=== PATIENT | female | born 1985 | race Caucasian/White ===

== ENCOUNTER 2016-10-14 05:22 | Inpatient (IN) | payer BC ==
[2016-10-14] MEDS ORDERED: Sodium Chloride 0.9% 2.5 ML Syringe FLUSH PRN (05:33)
[2016-10-14] MEDS ORDERED: Sodium Chloride 0.9% 10 ML Syringe FLUSH PRN (05:33)
[2016-10-14] MEDS ORDERED: Citric Acid/Sodium Citrate Solution 30 ML Cup PO SCH (05:45)
[2016-10-14] MEDS ORDERED: ceFAZolin 2 GM in Premix Bag 1 BAG IV ONE (06:00)
[2016-10-14] MEDS: Lactated Ringers 1,000 ML IV SCH ×2 (07:17→07:49)
--- NOTE | 2016-10-14 07:22 | PCM.PREANE ---
Preanesthetic Assessment - Procedure Proposed Procedure: Second - Anesthesia/Transfusion/Family Hx Anesthesia History: Prior Anesthesia Without Reaction ( 2002) Family History of Anesthesia Reaction: No Transfusion History: No Prior Transfusion(s) Intubation History: Unknown - Review of Systems General: No Symptoms Pulmonary: No Symptoms Cardiovascular: No Symptoms Gastrointestinal: No symptoms, Other (some Reflux with ) Neurological: No Symptoms Other: Reports: None - Physical Assessment Height: 5 ft 5 in Weight: 186 lb ASA Class: 2 Mental Status: Alert & Oriented x3 Airway Class: Mallampati = 1 Dentition: Reports: Normal Dentition Thyro-Mental Finger Breadths: 3 Mouth Opening Finger Breadths: 3 ROM/Head Extension: Full Lungs: Clear to auscultation, Normal respiratory effort Cardiovascular: Regular Rate, Regular Rhythm, No Murmurs Other: Back palpated for spinal: OK - Lab Values: Laboratory Last Values WBC 9.14 K/uL (4.0-11.0) 10/14/16 05:54 RBC 3.84 M/uL (4.30-5.90) L 10/14/16 05:54 Hgb 12.7 g/dL (12.0-16.0) 10/14/16 05:54 Hct 37.3 % (36.0-46.0) 10/14/16 05:54 MCV 97.1 fL (80.0-98.0) 10/14/16 05:54 MCH 33.1 pg (27.0-32.0) H 10/14/16 05:54 MCHC 34.0 g/dL (31.0-37.0) 10/14/16 05:54 RDW Std Deviation 46.5 fl (28.0-62.0) 10/14/16 05:54 RDW Coeff of Amari 13 % (11.0-15.0) 10/14/16 05:54 Plt Count 234 K/uL (150-400) 10/14/16 05:54 MPV 10.40 fL (7.40-12.00) 10/14/16 05:54 Nucleated RBC % 0.0 /100WBC 10/14/16 05:54 Nucleated RBCs # 0 K/uL 10/14/16 05:54 Blood Type O NEGATIVE 10/14/16 05:54 Antibody Screen NEGATIVE 10/14/16 05:54 - Allergies Allergies/Adverse Reactions: Allergies Allergy/AdvReac Type Severity Reaction Status Date / Time No Known Allergies Allergy Verified 11/17/15 14:23 - Blood Blood Available: Yes Product(s) Available: PRBC (T and S) - Anesthesia Plan Free Text/Narrative:: present for interview/exam. He will be present in delivery. Pre-Op Medication Ordered: Antacids - Acknowledgements Anesthesia Type Planned: Spinal Pt an Appropriate Candidate for the Planned Anesthesia: Yes Alternatives and Risks of Anesthesia Discussed w Pt/Guardian: Yes Pt/Guardian Understands and Agrees with Anesthesia Plan: Yes PreAnesthesia Questionnaire Genitourinary History: Reports: None LPN RN HOSPICE History: Reports: Endometriosis, Psychiatric History: Reports: Anxiety, Depression, Panic attack - Infectious Disease History Infectious Disease History: Reports: Chicken pox, Influenza, Shingles - Past Surgical History Head Surgeries/Procedures: Reports: None Female Surgical History: Reports: section Other Female Surgeries/Procedures: hx laparoscopy x2 for endometriosis - SUBSTANCE USE Smoking Status *Q: Never Smoker Days Per Week of Alcohol Use: 3 Number of Drinks Per Day: 2 Total Drinks Per Week: 6 Recreational Drug Use History: No - HOME MEDS Home Medications: Home Meds Doxylamine Succinate [Unisom Sleep Aid] 1 tab PO BEDTIME PRN 10/09/16 [History] Vit W-Ca,Fe,FA(<1 mg) [ Vitamins] 1 tab PO DAILY 10/09/16 [ History] - CURRENT (IN HOUSE) MEDS Current Meds: Current Medications Citric Acid/Sodium Citrate (Bicitra Solution) 30 ml PO .ONCE [facility] Last Admin: 10/14/16 07:09 Dose: 30 ml Lactated Ringer's (Ringers, Lactated) 1,000 mls @ 500 mls/hr IV .BOLUS OUSMANE Stop: 10/14/16 12:00 Last Admin: 10/14/16 07:17 Dose: 500 mls/hr Sodium Chloride (Saline Flush) 10 ml FLUSH ASDIRECTED PRN PRN Reason: Keep Vein Open Sodium Chloride (Saline Flush) 2.5 ml FLUSH ASDIRECTED PRN PRN Reason: Keep Vein Open Discontinued Medications Cefazolin Sodium/Dextrose 2 gm (/ Premix) 50 mls @ 100 mls/hr IV ONETIME ONE Stop: 10/14/16 06:29
[2016-10-14] MEDS ORDERED: Ondansetron 4 MG/2 ML SDV ONE (07:26)
[2016-10-14] MEDS ORDERED: Morphine PF 10 MG/10 ML SDV ONE (07:26)
[2016-10-14] MEDS ORDERED: Oxytocin 10 Units/1 ML SDV ONE (07:26)
[2016-10-14] MEDS ORDERED: ceFAZolin 1 GM Vial ONE (07:28)
[2016-10-14] MEDS ORDERED: Sodium Chloride 0.9% 20 ML ONE (07:28)
[2016-10-14] MEDS ORDERED: Octyl 2-Cyanoacrylate 1 Tube ONE (07:40)
[2016-10-14] MEDS ORDERED: ePHEDrine 50 MG/ML SDV ONE (08:02)
[2016-10-14] MEDS ORDERED: Phenylephrine/Normal Saline 100 MCG/ML 10 ML Syringe ONE (08:04)
--- NOTE | 2016-10-14 08:46 | PCM.OPNOTE ---
- General Post-Op/Procedure Note Date of Surgery/Procedure: 10/14/16 Operative Procedure(s): repeat low transverse Findings: liveborn male 02/21 weigth 4180 grams, normal pelvis Pre Op Diagnosis: 39 weeks prior Post-Op Diagnosis: Same Anesthesia Technique: Spinal Primary Surgeon: Lisy Rubio Anesthesia Provider: Yousuf Jolly Ward Nurse: Leander Marley Pathology: none Output, Urine Amount: 1,200 EBL in mLs: 500 Complications: None Known Condition: Good
[2016-10-14] MEDS ORDERED: Lanolin 100% Cream 7 GM Tube TOP PRN (08:47)
[2016-10-14] MEDS ORDERED: Methylergonovine 0.2 MG/1 ML Amp IM PRN (08:47)
[2016-10-14] MEDS ORDERED: Ondansetron 4 MG/2 ML SDV IV PRN (08:47)
[2016-10-14] MEDS ORDERED: Bisacodyl 10 MG Supp RECTAL PRN (08:47)
[2016-10-14] MEDS ORDERED: Lactated Ringers 1,000 ML IV SCH (09:00)
[2016-10-14] MEDS: Ketorolac 30 MG/ML SDV IVPUSH SCH ×3 (09:06→21:14)
--- NOTE | 2016-10-14 09:35 | OR ---
SURGEON: Lisy Rubio M.D. DATE OF PROCEDURE: 10/14/2016 PREOPERATIVE DIAGNOSIS: A 39-week intrauterine , prior delivery, desires repeat. POSTOPERATIVE DIAGNOSES: 1. A 39-week intrauterine , prior delivery, desires repeat. 2. Polyhydramnios. PROCEDURE: Repeat low transverse section. ANESTHESIA: Spinal. ESTIMATED BLOOD LOSS: Less than 500 mL. FLUIDS: 1200 mL crystalloid. FINDINGS: Live-born male, score 9 and 9, weighing 4180 g. Normal-appearing uterus, tubes, and ovaries. COMPLICATIONS: None known. DISPOSITION: Stable to recovery. BRIEF HISTORY: This is a 31-year-old female. She is G2, P1-0-0-1. She presents for repeat delivery. She has been counseled regarding option of vaginal trial of labor and risks and benefits of such were reviewed and she declines. She desires to proceed with a repeat low transverse section with risks discussed including bleeding, infection, injury to bowel, bladder, blood vessels, ureters, other organs, risk of thromboembolic event, and risk of anesthesia. Understanding all these risks, she does desire to proceed. DESCRIPTION OF PROCEDURE: With the patient in left tilt position, under adequate spinal analgesia, the abdomen was prepped with chlorhexidine and draped in the usual fashion for abdominal surgery. SCDs were in place. Velez catheter had been placed and she received 2 g of Ancef IV. After documentation of adequate analgesia, the prior cicatrix was excised using a scalpel, and the incision was carried through the subcutaneous tissue to the fascia which was scored transversely in the midline. The fascia was elevated from the underlying rectus muscle and using sharp and blunt dissection. The rectus muscles were bluntly in the midline. A finger was used to enter the peritoneal cavity and this incision was extended bluntly. The visceral peritoneum over the lower uterine segment was incised and an adequate bladder flap was developed. A transverse curvilinear incision was made over the lower uterine segment. A finger was used to enter the amniotic cavity. Clear fluid was noted. The incision was extended by blunt dissection in a cephalad caudad direction resulting in a low transverse incision over the lower uterine segment. The head was delivered via the uterine cavity. The infant was bulb suctioned by nose and mouth. The remainder of the 's body was delivered without any difficulty. The cord was clamped x2 and cut. The infant was handed to the nurse in attendance at delivery. The is a liveborn male, score 9 and 9, weighing 4180 g. Cord blood was collected for cord ABGs as well as routine cord blood sampling. The placenta was removed by manual extraction. The uterus was cleaned with a dry laparotomy tape. The cervix was opened with a ring forceps. The uterine incision was closed with a running lock suture of 0 Polysorb followed by an imbricating layer of 0 Polysorb. Two additional [id number] sutures were placed for complete hemostasis. After confirmation of complete hemostasis, was performed the pericolic gutters. Posterior cul-de-sac were cleaned with a wet laparotomy tape. Tubes and ovaries were inspected and were normal. The uterine incision was again inspected. It remained hemostatic. Therefore, the Abiodun O retractor was removed. The uterine incision was inspected one last time and remained completely hemostatic. Therefore, the rectus muscle and peritoneum were loosely approximated in the midline using a running mattress suture of 0 Polysorb. The posterior aspect of the fascia was inspected. There was no areas of bleeding noted. Therefore, the fascial incision was closed with a running suture of 0 Polysorb. Subcutaneous tissue was irrigated. Any areas of bleeding that were noted were cauterized. The skin was closed with a running subcuticular suture of 3-0 Polysorb followed by skin glue. Final sponge, needle, and instrument counts were reported as correct. There were no known complications. The patient was transferred to recovery in good condition and then the is in nursery in good condition. ORIANA / LIMA /[id number]
[2016-10-14] MEDS ORDERED: Naloxone 0.4 MG/ML Syringe IVPUSH PRN (10:11)
[2016-10-14] MEDS: diphenhydrAMINE 50 MG/ML SDV IVPUSH PRN ×3 (10:36→22:41)
[2016-10-14] MEDS: Docusate Sodium 100 MG Cap PO SCH ×2 (12:00→21:17)
[2016-10-14] MEDS: Nalbuphine 10 MG/1 ML Vial IVPUSH PRN ×2 (13:24→19:34)
--- NOTE | 2016-10-14 16:55 | PCM.PNPP ---
- General Info Date of Service: 10/14/16 Functional Status: Reports: pain controlled, tolerating diet, ambulating, urinating - Review of Systems General: Reports: No Symptoms HEENT: Reports: no symptoms Pulmonary: Reports: no symptoms Cardiovascular: Reports: No Symptoms Gastrointestinal: Reports: No symptoms Genitourinary: Reports: no symptoms Musculoskeletal: Reports: no symptoms Skin: Reports: no symptoms Neurological: Reports: No Symptoms Psychiatric: Reports: no symptoms - General Info Date of Service: 10/14/16 - Patient Data Vital Signs - most recent: Last Vital Signs Temp 36.9 C 10/14/16 16:00 Pulse 99 10/14/16 16:00 Resp 14 10/14/16 16:00 BP 138/82 10/14/16 16:00 Pulse Ox 100 10/14/16 16:00 Weight - most recent: 84.368 kg I&O - last 24 hours: Intake & Output 10/14/16 10/14/16 10/14/16 06:59 14:59 22:59 Intake Total 2100 860 Output Total 1750 1875 Balance 350 -1015 Lab Results - last 24 hrs: Laboratory Results - last 24 hr 10/14/16 10/14/16 10/14/16 Range/Units 05:54 05:54 09:18 WBC 9.14 (4.0-11.0) K/uL RBC 3.84 L (4.30-5.90) M/uL Hgb 12.7 (12.0-16.0) g/dL Hct 37.3 (36.0-46.0) % MCV 97.1 (80.0-98.0) fL MCH 33.1 H (27.0-32.0) pg MCHC 34.0 (31.0-37.0) g/dL RDW Std Deviation 46.5 (28.0-62.0) fl RDW Coeff of Amari 13 (11.0-15.0) % Plt Count 234 (150-400) K/uL MPV 10.40 (7.40-12.00) fL Nucleated RBC % 0.0 /100WBC Nucleated RBCs # 0 K/uL Blood Type O NEGATIVE Antibody Screen NEGATIVE Screen NEGATIVE RhIG Candidate? YES Rhogam Indicated YES, BABY RH POS H Med Orders - Current: Current Medications Bisacodyl (Dulcolax) 10 mg RECTAL .ONCE PRN PRN Reason: Constipation Diphenhydramine HCl (Benadryl) 25 mg IVPUSH Q6H PRN PRN Reason: Itching or Nausea Last Admin: 10/14/16 16:37 Dose: 25 mg Docusate Sodium (Colace) 100 mg PO BID [facility] Last Admin: 10/14/16 12:00 Dose: Not Given Emollient Ointment (Lansinoh Hpa) 0 gm TOP ASDIRECTED PRN PRN Reason: Sore Nipples Lactated Ringer's (Ringers, Lactated) 1,000 mls @ 125 mls/hr IV ASDIRECTED [facility] Last Admin: 10/14/16 10:30 Dose: 125 mls/hr Ibuprofen (Motrin) 800 mg PO Q8H PRN PRN Reason: mild pain or fever Ketorolac Tromethamine (Toradol) 30 mg IVPUSH Q6H [facility] Stop: 10/15/16 09:01 Last Admin: 10/14/16 15:01 Dose: 30 mg Methylergonovine Maleate (Methergine) 0.2 mg IM .ONCE PRN PRN Reason: Excessive Vaginal Bleeding Nalbuphine HCl (Nubain) 5 mg IVPUSH Q3H PRN PRN Reason: Pruritis Stop: 10/15/16 10:11 Last Admin: 10/14/16 13:24 Dose: 5 mg Naloxone HCl (Narcan) 0.1 mg IVPUSH ONETIME PRN PRN Reason: Respiratory Depression Stop: 10/15/16 10:11 Ondansetron HCl (Zofran) 4 mg IV Q4H PRN PRN Reason: Nausea/Vomiting Oxycodone/Acetaminophen (Percocet 325-5 Mg) 1 tab PO Q4H PRN PRN Reason: Pain (moderate 4-6) Discontinued Medications Cefazolin Sodium (Ancef) Confirm Administered Dose 2 gm .ROUTE .STK-MED ONE Stop: 10/14/16 07:29 Citric Acid/Sodium Citrate (Bicitra Solution) 30 ml PO .ONCE [facility] Last Admin: 10/14/16 07:09 Dose: 30 ml Ephedrine Sulfate (Ephedrine Sulfate) Confirm Administered Dose 50 mg .ROUTE .STK-MED ONE Stop: 10/14/16 08:03 Lactated Ringer's (Ringers, Lactated) 1,000 mls @ 500 mls/hr IV .BOLUS OUSMANE Stop: 10/14/16 12:00 Last Admin: 10/14/16 07:49 Dose: 500 mls/hr Cefazolin Sodium/Dextrose 2 gm (/ Premix) 50 mls @ 100 mls/hr IV ONETIME ONE Stop: 10/14/16 06:29 Sodium Chloride (Normal Saline) Confirm Administered Dose 20 mls @ as directed .ROUTE .STK-MED ONE Stop: 10/14/16 07:29 Morphine Sulfate (Duramorph Pf) Confirm Administered Dose 10 mg .ROUTE .STK-MED ONE Stop: 10/14/16 07:27 Octyl Cyanoacrylate (Dermabond Advance) Confirm Administered Dose 1 applic .ROUTE .STK-MED ONE Stop: 10/14/16 07:41 Ondansetron HCl (Zofran) Confirm Administered Dose 4 mg .ROUTE .STK-MED ONE Stop: 10/14/16 07:27 Oxytocin (Pitocin) Confirm Administered Dose 20 unit .ROUTE .STK-MED ONE Stop: 10/14/16 07:27 Phenylephrine HCl (Phenylephrine In Ns 100 Mcg/Ml) Confirm Administered Dose 1 mg .ROUTE .STK-MED ONE Stop: 10/14/16 08:05 Sodium Chloride (Saline Flush) 10 ml FLUSH ASDIRECTED PRN PRN Reason: Keep Vein Open Sodium Chloride (Saline Flush) 2.5 ml FLUSH ASDIRECTED PRN PRN Reason: Keep Vein Open - Infant Interaction Infant Disposition, : in Room with Family Interaction: Holding Infant Feeding: Breastfed Infant; Nursed Well Support Person: - Recovery Exam Fundal Tone: Firm Fundal Level: 1 Fingerbreadths Below Umbilicus Fundal Placement: Midline Lochia Amount: Scant Lochia Color: Rubra/Red Perineum Description: Intact, Minimal Bruising/Swelling Episiotomy/Laceration: None Bladder Status: Indwelling Catheter in Place Urinary Elimination: Indwelling Catheter - Exam General: alert, oriented Abdomen: soft, no tenderness, no distension Extremities: no edema Skin: warm, dry, intact Neurological: no new focal deficit Psy/Mental Status: alert, normal affect, normal mood - Problem List & Annotations (1) delivery delivered SNOMED Code(s): 666081098 Code(s): O82 - ENCOUNTER FOR DELIVERY WITHOUT INDICATION Status: Acute Current Visit: Yes - Problem List Review Problem List Initiated/Reviewed/Updated: Yes - My Orders Last 24 Hours: My Active Orders 10/14/16 05:33 Non Stress Test [RC] PER UNIT ROUTINE Procedure Site Prep Instruct [RC] ASDIRECTED Up ad Lara [RC] ASDIRECTED Verify Patient Consent Obtain [RC] ASDIRECTED Vital Signs [RC] PER UNIT ROUTINE Resuscitation Status Routine 10/14/16 05:35 Notify Provider Vital Signs [RC] PRN 10/14/16 08:47 Patient Status [ADT] Routine Ambulate [RC] PER UNIT ROUTINE Communication Order [RC] PER UNIT ROUTINE Communication Order [RC] PER UNIT ROUTINE Communication Order [RC] Per Unit Routine May Shower [RC] ASDIRECTED Notify Provider Intake and Out [RC] ASDIRECTED Notify Provider Vital Signs [RC] ASDIRECTED RT Incentive Spirometry [RC] Q2HWA Vital Signs [RC] PER UNIT ROUTINE Acetaminophen/oxyCODONE [Percocet 325-5 MG] 1 tab PO Q4H PRN Bisacodyl [Dulcolax] 10 mg RECTAL .ONCE PRN Ibuprofen [Motrin] 800 mg PO Q8H PRN Lanolin [Lansinoh HPA] See Dose Instructions TOP ASDIRECTED PRN Methylergonovine [Methergine] 0.2 mg IM .ONCE PRN Ondansetron [Zofran] 4 mg IV Q4H PRN diphenhydrAMINE [Benadryl] 25 mg IVPUSH Q6H PRN Abdominal Binder [OM.PC] Routine Assess Lochia [WOMSER] Per Unit Routine Assess Uterine Involution [WOMSER] Per Unit Routine Breast Pump [WOMSER] Per Unit Routine Peripheral IV Discontinue [OM.PC] Routine Sequential Compression Device [OM.PC] Per Unit Routine 10/14/16 08:48 Antiembolic Devices [RC] PER UNIT ROUTINE 10/14/16 09:00 Docusate Sodium [Colace] 100 mg PO BID Ketorolac [Toradol] 30 mg IVPUSH Q6H Lactated Ringers [Ringers, Lactated] 1,000 ml IV ASDIRECTED 10/14/16 09:18 SCREEN [BBK] Routine RH IMMUNE GLOBULIN [BBK] Routine RHIG WORKUP, [BBK] Routine 10/14/16 Dinner Regular Diet [DIET] 10/15/16 05:11 HEMOGLOBIN/HEMATOCRIT,HH [HEME] Timed - Assessment Assessment:: PPD#0 after repeat low transverse , stable, minimal lochia, pain well controlled. - Plan Plan:: Continue care.
[2016-10-15] MEDS: Nalbuphine 10 MG/1 ML Vial IVPUSH PRN ×2 (02:08→08:17)
[2016-10-15] MEDS: Ketorolac 30 MG/ML SDV IVPUSH SCH ×2 (03:55→09:22)
[2016-10-15] MEDS: diphenhydrAMINE 50 MG/ML SDV IVPUSH PRN (06:40)
--- NOTE | 2016-10-15 06:43 | PCM48HPAN ---
Post Anesthesia Note - EVALUATION WITHIN 48HRS OF ANESTHETIC Vital Signs in Normal Range: Yes Patient Participated in Evaluation: Yes Respiratory Function Stable: Yes Airway Patent: Yes Cardiovascular Function Stable: Yes Hydration Status Stable: Yes Pain Control Satisfactory: Yes Nausea and Vomiting Control Satisfactory: Yes Mental Status Recovered: Yes
[2016-10-15] MEDS: Acetaminophen/oxyCODONE 325-5 MG Tab PO PRN ×4 (08:12→21:07)
--- NOTE | 2016-10-15 08:15 | PCM.PNPP ---
- General Info Date of Service: 10/15/16 Functional Status: Reports: pain controlled, tolerating diet, ambulating, urinating, other (passed flatus, well, no comlaints.) - Review of Systems General: Reports: No Symptoms HEENT: Reports: no symptoms Pulmonary: Reports: no symptoms Cardiovascular: Reports: No Symptoms Gastrointestinal: Reports: No symptoms Genitourinary: Reports: no symptoms Musculoskeletal: Reports: no symptoms Skin: Reports: no symptoms Neurological: Reports: No Symptoms Psychiatric: Reports: no symptoms - General Info Date of Service: 10/15/16 - Patient Data Vital Signs - most recent: Last Vital Signs Temp 37.1 C 10/15/16 07:25 Pulse 86 10/15/16 07:25 Resp 14 10/15/16 07:25 BP 117/68 10/15/16 07:25 Pulse Ox 96 10/15/16 07:25 Weight - most recent: 84.368 kg I&O - last 24 hours: Intake & Output 10/14/16 10/15/16 10/15/16 22:59 06:59 14:59 Intake Total 860 Output Total 3575 3450 Balance -2715 -3450 Lab Results - last 24 hrs: Laboratory Results - last 24 hr 10/14/16 10/15/16 Range/Units 09:18 05:21 Hgb 11.2 L (12.0-16.0) g/dL Hct 34.2 L (36.0-46.0) % Screen NEGATIVE RhIG Candidate? YES Rhogam Indicated YES, BABY RH POS H Med Orders - Current: Current Medications Bisacodyl (Dulcolax) 10 mg RECTAL .ONCE PRN PRN Reason: Constipation Diphenhydramine HCl (Benadryl) 25 mg IVPUSH Q6H PRN PRN Reason: Itching or Nausea Last Admin: 10/15/16 06:40 Dose: 25 mg Docusate Sodium (Colace) 100 mg PO BID [facility] Last Admin: 10/14/16 21:17 Dose: 100 mg Emollient Ointment (Lansinoh Hpa) 0 gm TOP ASDIRECTED PRN PRN Reason: Sore Nipples Lactated Ringer's (Ringers, Lactated) 1,000 mls @ 125 mls/hr IV ASDIRECTED [facility] Last Admin: 10/14/16 10:30 Dose: 125 mls/hr Ibuprofen (Motrin) 800 mg PO Q8H PRN PRN Reason: mild pain or fever Ketorolac Tromethamine (Toradol) 30 mg IVPUSH Q6H [facility] Stop: 10/15/16 09:01 Last Admin: 10/15/16 03:55 Dose: 30 mg Methylergonovine Maleate (Methergine) 0.2 mg IM .ONCE PRN PRN Reason: Excessive Vaginal Bleeding Nalbuphine HCl (Nubain) 5 mg IVPUSH Q3H PRN PRN Reason: Pruritis Stop: 10/15/16 10:11 Last Admin: 10/15/16 02:08 Dose: 5 mg Naloxone HCl (Narcan) 0.1 mg IVPUSH ONETIME PRN PRN Reason: Respiratory Depression Stop: 10/15/16 10:11 Ondansetron HCl (Zofran) 4 mg IV Q4H PRN PRN Reason: Nausea/Vomiting Oxycodone/Acetaminophen (Percocet 325-5 Mg) 1 tab PO Q4H PRN PRN Reason: Pain (moderate 4-6) Last Admin: 10/15/16 08:12 Dose: 1 tab Discontinued Medications Cefazolin Sodium (Ancef) Confirm Administered Dose 2 gm .ROUTE .STK-MED ONE Stop: 10/14/16 07:29 Citric Acid/Sodium Citrate (Bicitra Solution) 30 ml PO .ONCE [facility] Last Admin: 10/14/16 07:09 Dose: 30 ml Ephedrine Sulfate (Ephedrine Sulfate) Confirm Administered Dose 50 mg .ROUTE .STK-MED ONE Stop: 10/14/16 08:03 Lactated Ringer's (Ringers, Lactated) 1,000 mls @ 500 mls/hr IV .BOLUS [facility]USMANE Stop: 10/14/16 12:00 Last Admin: 10/14/16 07:49 Dose: 500 mls/hr Cefazolin Sodium/Dextrose 2 gm (/ Premix) 50 mls @ 100 mls/hr IV ONETIME ONE Stop: 10/14/16 06:29 Sodium Chloride (Normal Saline) Confirm Administered Dose 20 mls @ as directed .ROUTE .STK-MED ONE Stop: 10/14/16 07:29 Morphine Sulfate (Duramorph Pf) Confirm Administered Dose 10 mg .ROUTE .STK-MED ONE Stop: 10/14/16 07:27 Octyl Cyanoacrylate (Dermabond Advance) Confirm Administered Dose 1 applic .ROUTE .STK-MED ONE Stop: 10/14/16 07:41 Ondansetron HCl (Zofran) Confirm Administered Dose 4 mg .ROUTE .STK-MED ONE Stop: 10/14/16 07:27 Oxytocin (Pitocin) Confirm Administered Dose 20 unit .ROUTE .STK-MED ONE Stop: 10/14/16 07:27 Phenylephrine HCl (Phenylephrine In Ns 100 Mcg/Ml) Confirm Administered Dose 1 mg .ROUTE .STK-MED ONE Stop: 10/14/16 08:05 Sodium Chloride (Saline Flush) 10 ml FLUSH ASDIRECTED PRN PRN Reason: Keep Vein Open Sodium Chloride (Saline Flush) 2.5 ml FLUSH ASDIRECTED PRN PRN Reason: Keep Vein Open - Infant Interaction Infant Disposition, : [place] in Room with Family Interaction: Holding Feeding: Breastfed ; Nursed Well Support Person: - Recovery Exam Fundal Tone: Firm Fundal Level: 1 Fingerbreadths Below Umbilicus Fundal Placement: Midline Lochia Amount: Scant Lochia Color: Rubra/Red Perineum Description: Intact, Minimal Bruising/Swelling Episiotomy/Laceration: None Bladder Status: Nonpalpable Urinary Elimination: Voided - Exam General: alert, oriented HEENT: Pupils equal Neck: supple Lungs: Clear to auscultation, Normal respiratory effort Cardiovascular: Regular Rate, Regular Rhythm Abdomen: bowel sounds present, soft, no tenderness, no distension Extremities: no edema Skin: warm, dry, intact Wound/Incisions: healing well Neurological: no new focal deficit Psy/Mental Status: alert, normal affect, normal mood - Problem List & Annotations (1) delivery delivered SNOMED Code(s): 396507185 Code(s): O82 - ENCOUNTER FOR DELIVERY WITHOUT INDICATION Status: Acute Current Visit: Yes - Problem List Review Problem List Initiated/Reviewed/Updated: Yes - My Orders Last 24 Hours: My Active Orders 10/14/16 08:47 Patient Status [ADT] Routine Ambulate [RC] PER UNIT ROUTINE Communication Order [RC] PER UNIT ROUTINE Communication Order [RC] PER UNIT ROUTINE Communication Order [RC] Per Unit Routine May Shower [RC] ASDIRECTED Notify Provider Intake and Out [RC] ASDIRECTED Notify Provider Vital Signs [RC] ASDIRECTED RT Incentive Spirometry [RC] Q2HWA Vital Signs [RC] PER UNIT ROUTINE Acetaminophen/oxyCODONE [Percocet 325-5 MG] 1 tab PO Q4H PRN Bisacodyl [Dulcolax] 10 mg RECTAL .ONCE PRN Ibuprofen [Motrin] 800 mg PO Q8H PRN Lanolin [Lansinoh HPA] See Dose Instructions TOP ASDIRECTED PRN Methylergonovine [Methergine] 0.2 mg IM .ONCE PRN Ondansetron [Zofran] 4 mg IV Q4H PRN diphenhydrAMINE [Benadryl] 25 mg IVPUSH Q6H PRN Abdominal Binder [OM.PC] Routine Assess Lochia [WOMSER] Per Unit Routine Assess Uterine Involution [WOMSER] Per Unit Routine Breast Pump [WOMSER] Per Unit Routine Peripheral IV Discontinue [OM.PC] Routine Sequential Compression Device [OM.PC] Per Unit Routine 10/14/16 08:48 Antiembolic Devices [RC] PER UNIT ROUTINE 10/14/16 09:00 Docusate Sodium [Colace] 100 mg PO BID Ketorolac [Toradol] 30 mg IVPUSH Q6H Lactated Ringers [Ringers, Lactated] 1,000 ml IV ASDIRECTED 10/14/16 09:18 SCREEN [BBK] Routine RH IMMUNE GLOBULIN [BBK] Routine RHIG WORKUP, [BBK] Routine 10/14/16 Dinner Regular Diet [DIET] - Assessment Assessment:: PPD#1 after repeat low transverse , stable, minimal lochia, pain well controlled. well. - Plan Plan:: Ambulate, may shower, discontinue IV, continue postop care, anticipate home in am.
[2016-10-15] MEDS: Docusate Sodium 100 MG Cap PO SCH ×2 (09:21→21:07)
[2016-10-15] MEDS: diphenhydrAMINE 50 MG Cap PO PRN ×2 (14:19→21:07)
[2016-10-15] MEDS: Ibuprofen 800 MG Tab PO PRN ×2 (14:23→22:49)
[2016-10-16] MEDS: Acetaminophen/oxyCODONE 325-5 MG Tab PO PRN ×3 (01:47→09:44)
--- NOTE | 2016-10-16 08:12 | PCM.PNPP ---
<Sara Pruitt - Last Filed: 10/16/16 08:08> - General Info Date of Service: 10/16/16 Functional Status: Reports: pain controlled, tolerating diet, ambulating, urinating - Review of Systems General: Denies: Fever, Weakness, Fatigue Pulmonary: Denies: shortness of breath, pleuritic chest pain, cough Cardiovascular: Denies: Chest Pain, Palpitations, Dyspnea on Exertion Gastrointestinal: Denies: Abdominal pain Genitourinary: Denies: dysuria Psychiatric: Reports: no symptoms - General Info Date of Service: 10/16/16 - Patient Data Vital Signs - most recent: Last Vital Signs Temp 36.6 C 10/16/16 04:54 Pulse 77 10/16/16 04:54 Resp 16 10/16/16 04:54 BP 106/63 10/16/16 04:54 Pulse Ox 98 10/16/16 04:54 Weight - most recent: 84.368 kg Lab Results - last 24 hrs: Laboratory Results - last 24 hr 10/14/16 Range/Units 09:18 Screen NEGATIVE RhIG Candidate? YES Rhogam Indicated YES, BABY RH POS H Med Orders - Current: Current Medications Bisacodyl (Dulcolax) 10 mg RECTAL .ONCE PRN PRN Reason: Constipation Diphenhydramine HCl (Benadryl) 25 mg IVPUSH Q6H PRN PRN Reason: Itching or Nausea Last Admin: 10/15/16 06:40 Dose: 25 mg Diphenhydramine HCl (Benadryl) 50 mg PO Q6H PRN PRN Reason: Itching Last Admin: 10/15/16 21:07 Dose: 50 mg Docusate Sodium (Colace) 100 mg PO BID OUSMANE Last Admin: 10/15/16 21:07 Dose: 100 mg Emollient Ointment (Lansinoh Hpa) 0 gm TOP ASDIRECTED PRN PRN Reason: Sore Nipples Lactated Ringer's (Ringers, Lactated) 1,000 mls @ 125 mls/hr IV ASDIRECTED OUSMANE Last Admin: 10/14/16 10:30 Dose: 125 mls/hr Ibuprofen (Motrin) 800 mg PO Q8H PRN PRN Reason: mild pain or fever Last Admin: 10/15/16 22:49 Dose: 800 mg Methylergonovine Maleate (Methergine) 0.2 mg IM .ONCE PRN PRN Reason: Excessive Vaginal Bleeding Ondansetron HCl (Zofran) 4 mg IV Q4H PRN PRN Reason: Nausea/Vomiting Oxycodone/Acetaminophen (Percocet 325-5 Mg) 1 - 2 tab PO Q4H PRN PRN Reason: pain Last Admin: 10/16/16 05:37 Dose: 2 tab Discontinued Medications Cefazolin Sodium (Ancef) Confirm Administered Dose 2 gm .ROUTE .STK-MED ONE Stop: 10/14/16 07:29 Citric Acid/Sodium Citrate (Bicitra Solution) 30 ml PO .ONCE OUSMANE Last Admin: 10/14/16 07:09 Dose: 30 ml Ephedrine Sulfate (Ephedrine Sulfate) Confirm Administered Dose 50 mg .ROUTE .STK-MED ONE Stop: 10/14/16 08:03 Lactated Ringer's (Ringers, Lactated) 1,000 mls @ 500 mls/hr IV .BOLUS OUSMANE Stop: 10/14/16 12:00 Last Admin: 10/14/16 07:49 Dose: 500 mls/hr Cefazolin Sodium/Dextrose 2 gm (/ Premix) 50 mls @ 100 mls/hr IV ONETIME ONE Stop: 10/14/16 06:29 Last Admin: 10/15/16 10:54 Dose: Not Given Sodium Chloride (Normal Saline) Confirm Administered Dose 20 mls @ as directed .ROUTE .STK-MED ONE Stop: 10/14/16 07:29 Ketorolac Tromethamine (Toradol) 30 mg IVPUSH Q6H OUSMANE Stop: 10/15/16 09:01 Last Admin: 10/15/16 09:22 Dose: 30 mg Morphine Sulfate (Duramorph Pf) Confirm Administered Dose 10 mg .ROUTE .STK-MED ONE Stop: 10/14/16 07:27 Nalbuphine HCl (Nubain) 5 mg IVPUSH Q3H PRN PRN Reason: Pruritis Stop: 10/15/16 10:11 Last Admin: 10/15/16 08:17 Dose: 5 mg Naloxone HCl (Narcan) 0.1 mg IVPUSH ONETIME PRN PRN Reason: Respiratory Depression Stop: 10/15/16 10:11 Octyl Cyanoacrylate (Dermabond Advance) Confirm Administered Dose 1 applic .ROUTE .STK-MED ONE Stop: 10/14/16 07:41 Ondansetron HCl (Zofran) Confirm Administered Dose 4 mg .ROUTE .STK-MED ONE Stop: 10/14/16 07:27 Oxycodone/Acetaminophen (Percocet 325-5 Mg) 1 tab PO Q4H PRN PRN Reason: Pain (moderate 4-6) Last Admin: 10/16/16 01:47 Dose: 1 tab Oxytocin (Pitocin) Confirm Administered Dose 20 unit .ROUTE .STK-MED ONE Stop: 10/14/16 07:27 Phenylephrine HCl (Phenylephrine In Ns 100 Mcg/Ml) Confirm Administered Dose 1 mg .ROUTE .STK-MED ONE Stop: 10/14/16 08:05 Sodium Chloride (Saline Flush) 10 ml FLUSH ASDIRECTED PRN PRN Reason: Keep Vein Open Sodium Chloride (Saline Flush) 2.5 ml FLUSH ASDIRECTED PRN PRN Reason: Keep Vein Open - Infant Interaction Disposition, : in Room with Family Interaction: Holding Feeding: Breastfed Infant; Nursed Well Support Person: - Recovery Exam Fundal Tone: Firm Fundal Level: 1 Fingerbreadths Below Umbilicus Fundal Placement: Midline Lochia Amount: Scant Lochia Color: Rubra/Red Perineum Description: Intact, Minimal Bruising/Swelling Episiotomy/Laceration: None Bladder Status: Voiding Urinary Elimination: Voided - Exam General: alert, oriented Lungs: Clear to auscultation, Normal respiratory effort Cardiovascular: Regular Rate, Regular Rhythm Abdomen: bowel sounds present, soft, no tenderness, no distension Extremities: no edema Psy/Mental Status: alert, normal affect, normal mood - Problem List Review Problem List Initiated/Reviewed/Updated: Yes - Assessment Assessment:: PPD#2 after repeat low transverse , stable, minimal lochia. well. Pain is well controlled at this time. - Plan Plan:: Discharge home today. Nothing in the vagina for 6 weeks. Continue PNV while . Rx for Percorcet. Can use OTC ibuprofen as needed for pain. Instructed patient to call if she develops fever greater than 101, or bleeding through a large pad an hour. F/U with [facility] in 2 and 6 weeks. <Lisy Rubio - Last Filed: 10/16/16 08:13> - Patient Data Vital Signs - most recent: Last Vital Signs Temp 36.6 C 10/16/16 04:54 Pulse 77 10/16/16 04:54 Resp 16 10/16/16 04:54 BP 106/63 10/16/16 04:54 Pulse Ox 98 10/16/16 04:54 Lab Results - last 24 hrs: Laboratory Results - last 24 hr 10/14/16 Range/Units 09:18 Screen NEGATIVE RhIG Candidate? YES Rhogam Indicated YES, BABY RH POS H Med Orders - Current: Current Medications Bisacodyl (Dulcolax) 10 mg RECTAL .ONCE PRN PRN Reason: Constipation Diphenhydramine HCl (Benadryl) 25 mg IVPUSH Q6H PRN PRN Reason: Itching or Nausea Last Admin: 10/15/16 06:40 Dose: 25 mg Diphenhydramine HCl (Benadryl) 50 mg PO Q6H PRN PRN Reason: Itching Last Admin: 10/15/16 21:07 Dose: 50 mg Docusate Sodium (Colace) 100 mg PO BID OUSMANE Last Admin: 10/15/16 21:07 Dose: 100 mg Emollient Ointment (Lansinoh Hpa) 0 gm TOP ASDIRECTED PRN PRN Reason: Sore Nipples Lactated Ringer's (Ringers, Lactated) 1,000 mls @ 125 mls/hr IV ASDIRECTED OUSMANE Last Admin: 10/14/16 10:30 Dose: 125 mls/hr Ibuprofen (Motrin) 800 mg PO Q8H PRN PRN Reason: mild pain or fever Last Admin: 10/15/16 22:49 Dose: 800 mg Methylergonovine Maleate (Methergine) 0.2 mg IM .ONCE PRN PRN Reason: Excessive Vaginal Bleeding Ondansetron HCl (Zofran) 4 mg IV Q4H PRN PRN Reason: Nausea/Vomiting Oxycodone/Acetaminophen (Percocet 325-5 Mg) 1 - 2 tab PO Q4H PRN PRN Reason: pain Last Admin: 10/16/16 05:37 Dose: 2 tab Discontinued Medications Cefazolin Sodium (Ancef) Confirm Administered Dose 2 gm .ROUTE .STK-MED ONE Stop: 10/14/16 07:29 Citric Acid/Sodium Citrate (Bicitra Solution) 30 ml PO .ONCE OUSMANE Last Admin: 10/14/16 07:09 Dose: 30 ml Ephedrine Sulfate (Ephedrine Sulfate) Confirm Administered Dose 50 mg .ROUTE .STK-MED ONE Stop: 10/14/16 08:03 Lactated Ringer's (Ringers, Lactated) 1,000 mls @ 500 mls/hr IV .BOLUS OUSMANE Stop: 10/14/16 12:00 Last Admin: 10/14/16 07:49 Dose: 500 mls/hr Cefazolin Sodium/Dextrose 2 gm (/ Premix) 50 mls @ 100 mls/hr IV ONETIME ONE Stop: 10/14/16 06:29 Last Admin: 10/15/16 10:54 Dose: Not Given Sodium Chloride (Normal Saline) Confirm Administered Dose 20 mls @ as directed .ROUTE .STK-MED ONE Stop: 10/14/16 07:29 Ketorolac Tromethamine (Toradol) 30 mg IVPUSH Q6H OUSMANE Stop: 10/15/16 09:01 Last Admin: 10/15/16 09:22 Dose: 30 mg Morphine Sulfate (Duramorph Pf) Confirm Administered Dose 10 mg .ROUTE .STK-MED ONE Stop: 10/14/16 07:27 Nalbuphine HCl (Nubain) 5 mg IVPUSH Q3H PRN PRN Reason: Pruritis Stop: 10/15/16 10:11 Last Admin: 10/15/16 08:17 Dose: 5 mg Naloxone HCl (Narcan) 0.1 mg IVPUSH ONETIME PRN PRN Reason: Respiratory Depression Stop: 10/15/16 10:11 Octyl Cyanoacrylate (Dermabond Advance) Confirm Administered Dose 1 applic .ROUTE .STK-MED ONE Stop: 10/14/16 07:41 Ondansetron HCl (Zofran) Confirm Administered Dose 4 mg .ROUTE .STK-MED ONE Stop: 10/14/16 07:27 Oxycodone/Acetaminophen (Percocet 325-5 Mg) 1 tab PO Q4H PRN PRN Reason: Pain (moderate 4-6) Last Admin: 10/16/16 01:47 Dose: 1 tab Oxytocin (Pitocin) Confirm Administered Dose 20 unit .ROUTE .STK-MED ONE Stop: 10/14/16 07:27 Phenylephrine HCl (Phenylephrine In Ns 100 Mcg/Ml) Confirm Administered Dose 1 mg .ROUTE .STK-MED ONE Stop: 10/14/16 08:05 Sodium Chloride (Saline Flush) 10 ml FLUSH ASDIRECTED PRN PRN Reason: Keep Vein Open Sodium Chloride (Saline Flush) 2.5 ml FLUSH ASDIRECTED PRN PRN Reason: Keep Vein Open - Problem List & Annotations (1) delivery delivered SNOMED Code(s): 670456885 Code(s): O82 - ENCOUNTER FOR DELIVERY WITHOUT INDICATION Status: Acute Current Visit: Yes - My Orders Last 24 Hours: My Active Orders 10/15/16 14:07 diphenhydrAMINE [Benadryl] 50 mg PO Q6H PRN - Plan Plan:: Patient examined by me and agree with above.
[2016-10-16] MEDS: Ibuprofen 800 MG Tab PO PRN (08:49)
[2016-10-16] MEDS: Docusate Sodium 100 MG Cap PO SCH (08:49)
[2016-10-16 09:59] VITALS: BP 128/78
== END 2016-10-16 10:54 | disposition home or self-care (01) | DRG 540 ==
LOC: MW.SDS 05:22 → MW.OB 05:33
PROVIDERS: ADMIT Obstetrics & Gynecology; ATTEND Obstetrics & Gynecology
PROC: 10D00Z1 Extraction of Products of Conception, Low, Open Approach (ICD-10-PCS; principal; 2016-10-14)
DX: O34.211 Maternal care for low transverse scar from previous cesarean delivery (principal); O40.3XX0 Polyhydramnios, third trimester, not applicable or unspecified; Z3A.39 39 weeks gestation of pregnancy; Z37.0 Single live birth
CPT/HCPCS: 01961; 36415; 59025; 85014; 85018; 85027; 85460; 86850; 86900; 86901; A9270-GY; J0690; J1200; J1885; J2270; J2300; J2405; J2590; J2790; J7120

== ENCOUNTER 2017-05-08 11:12 | Emergency (ER) | payer BC ==
--- NOTE | 2017-05-08 11:28 | EDM.PDOC ---
ED HPI GENERAL MEDICAL PROBLEM - General Stated Complaint: UNK Time Seen by Provider: 05/08/17 11:27 Source of Information: Reports: Patient - History of Present Illness INITIAL COMMENTS - FREE TEXT/NARRATIVE: HISTORY AND PHYSICAL: History of present illness: [Patient presents with history of anxiety and panic disorder She has stopped her Klonopin during she continues SSRI therapy although she has been quite anxious she is not followed up she feels she is on the verge of having panic attack she does not appear to be in any distress right now no fever nausea vomiting diarrhea constipation chest pain shortness breath headache dizziness palpitation about a urine symptoms We'll have her follow-up and establish primary care Petros Avila she generally sees whomever is available almost as a walk-in type patient basis ] Denies suicidal homicidal ideation Review of systems: As per history of present illness and below otherwise all systems reviewed and negative. Past medical history: As per history of present illness and as reviewed below otherwise noncontributory. Surgical history: As per history of present illness and as reviewed below otherwise noncontributory. Social history: No reported history of drug or alcohol abuse. Family history: As per history of present illness and as reviewed below otherwise noncontributory. Physical exam: HEENT: Atraumatic, normocephalic, pupils reactive, negative for conjunctival pallor or scleral icterus, mucous membranes moist, throat clear, neck supple, nontender, trachea midline. Lungs: Clear to auscultation, breath sounds equal bilaterally, chest nontender. Heart: S1S2, regular, negative for clicks, rubs, or JVD. Abdomen: Soft, nondistended, nontender. Negative for masses or hepatosplenomegaly. Negative for costovertebral tenderness. Pelvis: Stable nontender. Genitourinary: Deferred. Rectal: Deferred. Extremities: Atraumatic, negative for cords or calf pain. Neurovascular unremarkable. Neuro: Awake, alert, oriented. Cranial nerves II through XII unremarkable. Cerebellum unremarkable. Motor and sensory unremarkable throughout. Exam nonfocal. Diagnostics: []Clinical Therapeutics: []Ativan 0.5 mg by mouth now Impression: []Anxiety/panic Definitive disposition and diagnosis as appropriate pending reevaluation and review of above. - Related Data Allergies Allergy/AdvReac Type Severity Reaction Status Date / Time No Known Allergies Allergy Verified 05/08/17 11:29 Home Meds: Home Meds buPROPion [Wellbutrin XL] 150 mg PO DAILY 05/08/17 [History] Past Medical History Genitourinary History: Reports: None [employer] History: Reports: Endometriosis, Psychiatric History: Reports: Anxiety, Depression, Panic Attack - Infectious Disease History Infectious Disease History: Reports: Chicken Pox, Influenza, Shingles - Past Surgical History Female Surgical History: Reports: Section Social & Family History - Family History Family Medical History: Noncontributory - Tobacco Use Smoking Status *Q: Never Smoker - Alcohol Use Days Per Week of Alcohol Use: 3 Number of Drinks Per Day: 2 Total Drinks Per Week: 6 - Recreational Drug Use Recreational Drug Use: No ED ROS GENERAL - Review of Systems Review Of Systems: ROS reveals no pertinent complaints other than HPI. ED EXAM, GENERAL - Physical Exam Exam: See Below Course - Vital Signs Last Recorded V/S: Last Vital Signs Temp 98.9 F 05/08/17 11:21 Pulse 85 05/08/17 11:21 Resp 16 05/08/17 11:21 BP 130/79 05/08/17 11:21 Pulse Ox 98 05/08/17 11:21 Departure - Departure Time of Disposition: 11:46 Disposition: Home, Self-Care 01 Condition: Good Clinical Impression: Anxiety - Discharge Information Referrals: PCP,None [Primary Care Provider] - Additional Instructions: Medication as prescribed Return if symptoms persist or worsen Follow-up and establish a provider at [facility] within one week [facility] [address] [place] [address] The following information is given to patients seen in the emergency department who are being discharged to home. This information is to outline your options for follow-up care. We provide all patients seen in our emergency department with a follow-up referral. The need for follow-up, as well as the timing and circumstances, are variable depending upon the specifics of your emergency department visit. If you don't have a primary care physician on staff, we will provide you with a referral. We always advise you to contact your personal physician following an emergency department visit to inform them of the circumstance of the visit and for follow-up with them and/or the need for any referrals to a consulting specialist. The emergency department will also refer you to a specialist when appropriate. This referral assures that you have the opportunity for follow-up care with a specialist. All of these measure are taken in an effort to provide you with optimal care, which includes your follow-up. Under all circumstances we always encourage you to contact your private physician who remains a resource for coordinating your care. When calling for follow-up care, please make the office aware that this follow-up is from your recent emergency room visit. If for any reason you are refused follow-up, please contact the [facility] emergency department at and asked to speak to the emergency department charge nurse.
[2017-05-08] MEDS ORDERED: LORazepam 0.5 MG Tab PO ONE (11:47)
[2017-05-08 12:31] VITALS: BP 119/69
== END 2017-05-08 12:28 | disposition home or self-care (01) ==
LOC: MW.ED 11:12
DX: F41.0 Panic disorder [episodic paroxysmal anxiety] (principal); Z79.899 Other long term (current) drug therapy
CPT/HCPCS: 99283; A9270